=== PATIENT | female | born 1945 | race Caucasian/White ===

== ENCOUNTER 2017-04-01 21:23 | Emergency (ER) | payer OTHER ==
[~2017-04-01] VITALS: Ht 157.5 cm; Wt 63.5 kg
--- NOTE | ~2017-04-01 | EKG ---
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
[2017-04-01] MEDS ORDERED: ALLOPURINOL 30300 M2 PO (21:54)
[2017-04-01] MEDS ORDERED: KLOR-CON 1010 MEQ PO (21:54)
[2017-04-01] MEDS ORDERED: LIPITOR 20 MG T20 M1 PO (21:55)
[2017-04-01] MEDS ORDERED: COZAAR 50 MG TA50 M2 PO (21:55)
[2017-04-01] MEDS ORDERED: COLCHICINE0.6 MG PO (21:56)
[2017-04-01] MEDS ORDERED: HYDROCHLOROTH12.5 M1 PO (21:56)
[2017-04-01 23:22] LABS: BASOPHILS 0.8 % (0.0-2.0); EOSINOPHILS 1.3 % (0.0-3.0); HEMATOCRIT 38.4 % (37.0-47.0); HEMOGLOBIN 12.9 gm/dL (12.0-15.0); LYMPHOCYTES 29.6 % (24.0-44.0); MCH 30.5 pg (26.0-34.0); MCHC 33.7 g/dL (28.0-37.0); MCV 90.6 fL (80.0-100.0); MONOCYTES 11.1 % (1.0-8.0); PLATELET COUNT 178 thou/uL (150-400); POLYS 57.2 % (36.0-66.0); RBC 4.23 mil/uL (4.20-5.00); RDW 16.6 % (10.5-14.5); WBC 7.1 thou/uL (4.0-11.0)
[2017-04-01 23:25] LABS: MANUAL DIFF NO
[2017-04-01 23:30] LABS: ANION GAP 9 mmol/L (7-16); BUN 16 mg/dL (7-18); CALCIUM 9.8 mg/dL (8.5-10.1); CHLORIDE 102 mmol/L (98-107); CO2 28 mmol/L (21-32); CREATININE 1.1 mg/dL (0.6-1.0); GLUCOSE 142 mg/dL (74-106); SODIUM 139 mmol/L (136-145)
[2017-04-01 23:34] LABS: POTASSIUM 2.8 mmol/L (3.5-5.1)
[2017-04-01 23:45] LABS: ALKALINE PHOSPHATASE 74 U/L (46-116); DIRECT BILIRUBIN 0.1 mg/dL (<0.1-0.3); SGOT 29 U/L (15-37); SGPT 43 U/L (30-65); TOTAL BILIRUBIN 0.5 mg/dL (<0.1-1.0)
[2017-04-01 23:46] LABS: ALBUMIN 4.1 g/dL (3.4-5.0); TOTAL PROTEIN 7.8 g/dL (6.4-8.2)
[2017-04-01 23:59] LABS: TROPONIN-I < 0.04 ng/mL (<0.04-0.07)
[2017-04-02 03:20] VITALS: BP 119/69
== END 2017-04-02 03:22 | disposition home or self-care (01) ==
LOC: ER 21:23
PROVIDERS: Emergency Medicine
DX: E87.6 Hypokalemia (principal); R10.13 Epigastric pain; I10 Essential (primary) hypertension; M10.9 Gout, unspecified; Z86.73 Personal history of transient ischemic attack (TIA), and cerebral infarction without residual deficits